=== PATIENT | male | born 1950 | race Caucasian/White ===

== ENCOUNTER 2024-02-16 04:26 | Day surgery (SDC) | payer MEDICARE | END 2024-02-16 23:00 | disposition home or self-care (01) | LOC: WOUND 04:26 | DX: I89.0 Lymphedema, not elsewhere classified (principal); E11.51 Type 2 diabetes mellitus with diabetic peripheral angiopathy without gangrene; I87.2 Venous insufficiency (chronic) (peripheral); I11.0 Hypertensive heart disease with heart failure; I50.9 Heart failure, unspecified; G47.30 Sleep apnea, unspecified; Z88.5 Allergy status to narcotic agent | CPT/HCPCS: G0463 ==

== ENCOUNTER 2024-02-23 06:29 | Day surgery (SDC) | payer MEDICARE | END 2024-02-23 23:00 | disposition home or self-care (01) | LOC: WOUND 06:29 | DX: I89.0 Lymphedema, not elsewhere classified (principal); L03.115 Cellulitis of right lower limb; L03.116 Cellulitis of left lower limb; E11.51 Type 2 diabetes mellitus with diabetic peripheral angiopathy without gangrene; I87.2 Venous insufficiency (chronic) (peripheral); I11.0 Hypertensive heart disease with heart failure; I50.9 Heart failure, unspecified | CPT/HCPCS: G0463 ==

== ENCOUNTER 2024-03-01 07:00 | Day surgery (SDC) | payer MEDICARE | END 2024-03-01 23:00 | disposition home or self-care (01) | LOC: WOUND 07:00 | DX: I89.0 Lymphedema, not elsewhere classified (principal); L03.115 Cellulitis of right lower limb; L03.116 Cellulitis of left lower limb; I11.0 Hypertensive heart disease with heart failure; I50.9 Heart failure, unspecified; E11.622 Type 2 diabetes mellitus with other skin ulcer; L97.228 Non-pressure chronic ulcer of left calf with other specified severity; E11.51 Type 2 diabetes mellitus with diabetic peripheral angiopathy without gangrene; I87.2 Venous insufficiency (chronic) (peripheral) | CPT/HCPCS: 93922; G0463 ==

== ENCOUNTER 2024-03-08 04:41 | Day surgery (SDC) | payer MEDICARE ==
[2024-03-08] MEDS ORDERED: Lidocaine HCl 4% Cream 5 GM ONE (13:31)
== END 2024-03-08 23:00 | disposition home or self-care (01) ==
LOC: WOUND 04:41
DX: L03.115 Cellulitis of right lower limb (principal); I89.0 Lymphedema, not elsewhere classified; I87.2 Venous insufficiency (chronic) (peripheral); E11.51 Type 2 diabetes mellitus with diabetic peripheral angiopathy without gangrene; I11.0 Hypertensive heart disease with heart failure; I50.9 Heart failure, unspecified
CPT/HCPCS: A6213; A9270; G0463

== ENCOUNTER 2024-03-15 06:33 | Day surgery (SDC) | payer MEDICARE ==
[2024-03-15] MEDS ORDERED: Triamcinolone Acet 0.1% Cream 15 gm ONE (15:25)
== END 2024-03-15 23:00 | disposition home or self-care (01) ==
LOC: WOUND 06:33
DX: I89.0 Lymphedema, not elsewhere classified (principal); L03.115 Cellulitis of right lower limb; E11.51 Type 2 diabetes mellitus with diabetic peripheral angiopathy without gangrene; I87.2 Venous insufficiency (chronic) (peripheral); I11.0 Hypertensive heart disease with heart failure; I50.9 Heart failure, unspecified
CPT/HCPCS: A9270; G0463

== ENCOUNTER 2024-03-22 04:51 | Day surgery (SDC) | payer MEDICARE ==
[2024-03-22] MEDS ORDERED: Triamcinolone Acet 0.1% Cream 15 gm ONE (14:36)
== END 2024-03-22 23:00 | disposition home or self-care (01) ==
LOC: WOUND 04:51
DX: I89.0 Lymphedema, not elsewhere classified (principal); E11.51 Type 2 diabetes mellitus with diabetic peripheral angiopathy without gangrene; I87.2 Venous insufficiency (chronic) (peripheral); I11.0 Hypertensive heart disease with heart failure; I50.9 Heart failure, unspecified
CPT/HCPCS: A9270; G0463

== ENCOUNTER 2024-04-26 04:30 | Day surgery (SDC) | payer MEDICARE | END 2024-04-26 23:00 | disposition home or self-care (01) | LOC: WOUND 04:30 | DX: I89.0 Lymphedema, not elsewhere classified (principal); E11.622 Type 2 diabetes mellitus with other skin ulcer; L97.221 Non-pressure chronic ulcer of left calf limited to breakdown of skin; L97.211 Non-pressure chronic ulcer of right calf limited to breakdown of skin; I87.2 Venous insufficiency (chronic) (peripheral); E11.51 Type 2 diabetes mellitus with diabetic peripheral angiopathy without gangrene | CPT/HCPCS: A6213; G0463 ==

== ENCOUNTER 2024-05-03 03:36 | Day surgery (SDC) | payer MEDICARE | END 2024-05-03 23:00 | disposition home or self-care (01) | LOC: WOUND 03:36 | DX: I89.0 Lymphedema, not elsewhere classified (principal); L98.499 Non-pressure chronic ulcer of skin of other sites with unspecified severity; L97.211 Non-pressure chronic ulcer of right calf limited to breakdown of skin; L97.221 Non-pressure chronic ulcer of left calf limited to breakdown of skin; I87.2 Venous insufficiency (chronic) (peripheral); I73.9 Peripheral vascular disease, unspecified | CPT/HCPCS: A6213; G0463 ==

== ENCOUNTER 2024-09-10 15:42 | Inpatient (IN) | payer MEDICARE ==
[~2024-09-10] VITALS: Ht 182.9 cm; Wt 160.0 kg
[2024-09-10] VITALS (15 sets, daily range): BP systolic 99–143; BP diastolic 36–66
[2024-09-10 16:11] LABS: BASOPHILS ABSOLUTE AUTO 0.08 K/mm3 (0.00-0.23); BASOPHILS PERCENT AUTO 1 % (0-2); EOSINOPHILS ABSOLUTE AUTO 0.03 K/mm3 (0.00-0.68); EOSINOPHILS PERCENT AUTO 0 % (0-6); Hematocrit 36.1 % (37.0-53.0); Hemoglobin 11.8 g/dL (13.5-17.5); IMMATURE GRAN ABSOLUTE AUTO 0.09 K/mm3 (0.00-0.10); IMMATURE GRAN PERCENT AUTO 1 % (0-1); LYMPHOCYTES ABSOLUTE AUTO 0.94 K/mm3 (0.84-5.20); LYMPHOCYTES PERCENT AUTO 8 % (21-46); MONOCYTES ABSOLUTE AUTO 1.15 K/mm3 (0.16-1.47); MONOCYTES PERCENT AUTO 9 % (4-13); Mean Corpuscular HGB Conc 32.7 g/dL (31.5-36.5); Mean Corpuscular Volume 96 fL (80-100); NEUTROPHILS ABSOLUTE AUTO 10.03 K/mm3 (1.96-9.15); NEUTROPHILS PERCENT AUTO 82 % (41-73); NRBC ABSOLUTE 0.00 K/mm3 (0.00-0.02); NRBC Auto 0.0 /100 WBC (0.0-0.2); Platelet Count 120 K/mm3 (150-400); RDW Coefficient Variation 16.0 % (11.7-14.2); RDW Standard Deviation 56.8 fL (35.1-46.3)
[2024-09-10] MEDS ORDERED: CefTRIAXone Sodium 2,000 MG in NS 100 ML IV ONE (16:15)
[2024-09-10 16:19] LABS: Source, Urine Clean Catch
[2024-09-10 16:24] LABS: Bilirubin, Urine Neg (Neg); Color, Urine Brown (P-Yellow); Glucose Qualitative, Urine Neg (Neg); Ketones, Urine 1+ (Neg); Leukocyte Esterase, Urine 3+ (Neg); Protein, Urine 3+ (Neg); Specific Gravity, Urine 1.015 (1.003-1.022); Urobilinogen, Urine NORM (Normal)
[2024-09-10 16:35] LABS: Red Blood Cells, Urine TNTC /hpf (0-2); White Blood Cells, Urine TNTC /hpf (0-5)
[2024-09-10 16:43] LABS: Alanine Aminotransfer (ALT/SGP 23.0 U/L (12-78); Albumin, Blood 2.5 g/dL (3.4-5.0); Albumin/Globulin Ratio 0.5 (0.8-1.8); Anion Gap 12.0 mmol/L (3-11); Aspartate Aminotrans (AST/SGOT 55.0 U/L (12-37); Bilirubin, Total 1.2 mg/dL (0.1-1.0); Blood Urea Nitrogen 29.0 mg/dL (8-24); CO2, Blood 19.0 mmol/L (21-32); Calcium, Blood 8.4 mg/dL (8.5-10.1); Chloride, Blood 106.0 mmol/L (98-108); Creatinine, Blood 1.38 mg/dL (0.60-1.20); Globulin, Blood 4.8 g/dL (2.2-4.0); Glucose, Blood 133.0 mg/dL (70-99); Potassium, Blood 4.1 mmol/L (3.5-5.5); Sodium, Blood 133.0 mmol/L (136-145); Total Protein, Blood 7.3 g/dL (6.4-8.2)
[2024-09-10 16:51] LABS: Prothrombin Time Results 12.5 Sec (9.7-11.5)
[2024-09-10 18:12] LABS: pH Blood Venous 7.39 (7.34-7.37)
[2024-09-10] MEDS ORDERED: Piperacillin/Tazobactam Sod 4.5 GM in NS 100 ML IV SCH (18:30)
[2024-09-10] MEDS ORDERED: NS 1,000 ML IV ONE (20:29)
[2024-09-10] MEDS ORDERED: NS 1,000 ML BAG IR ONE (20:35)
[2024-09-10] MEDS ORDERED: Heparin Sodium,Porcine 5,000 UNIT/0.5 ML SDV SC SCH (21:00)
[2024-09-10] MEDS ORDERED: Lactobacil 2-S.Thermo-Bifido 1 1 Cap PO SCH (21:00)
--- NOTE | 2024-09-10 22:00 | NUR ---
ARRIVAL TO ICU: PT ARRIVED TO ICU FROM ER VIA [facility] @21:22. PT WAS TRANSFERRED FROM [facility] TO HOSPITAL BED VIA SHEET DRAW. PT ALERT AND ORIENTED AND FOLLOWING COMMANDS. PT STATES 5/10 GENERALIZED PAIN BUT NO CHEST PAIN. PT WILL BECOME SOB UPON EXERTION. PT HAS AUDIBLE EXPIRATORY WHEEZES IN UPPER AIRWAY BUT LUNG SOUNDS ARE CLEAR AND EQUAL BILATERALLY. PT IS ON O2 VIA NC @ 2LPM, SPO2 >95%. A-FIB RYTHM WITH SBP: 100-110'S MAP >65 HR: 60-80'S. IV: POWERGLIDE IN RUE AND PERIPHERAL IN LAC. RAMIREZ CATHETER IN PLACE AND DRAINING TO GRAVITY. SKIN: EDEMA AND CELLULTIS IN BLE, REDDNESS NOTED ON L LEG THAT TRAVELS FROM UPPER THIGH TO FOOT, SCATTERED BRUISING AND SCABS NOTED ALL OVER BODY, PICTURES HAVE BEEN TAKEN AND PLACED IN CHART. PT IS ABLE TO USE BEDPAN. LINES AND CORDS PLACED OUT OF REACH. CALL LIGHT PLACED WITHIN REACH AND PT WILL PRESS CALL BUTTON WHEN THEY NEED ASSISTANCE.
[2024-09-11] VITALS (38 sets, daily range): BP systolic 92–156; BP diastolic 37–97
[2024-09-11 03:20] LABS: C DIFFICILE DNA NEGATIVE (Negative)
--- NOTE | 2024-09-11 07:06 | NUR ---
SHIFT SUMMARY: PT IS DOIG WELL AND RESTING IN BED. PT ALERT AND FOLLOWING COMMANDS. PT STATES HAVING AN UPSET STOMACH AND THINKS IT IS DUE TO NOT EATING FOR OVER A DAY AND WILL WAIT TO SEE IF EATING BREAKFAST WILL HELP. PT WILL BECOME SOB UPON EXERTION. O2 @ 2LPM VIA NC, SPO2 >95%. A-FIB RYTHM AND BP HAS BEEN STABLE THROUGHOUT THE SHIFT. IV: POWERGLIDE IN LUE AND PERIPHERAL IV IN RAC. PT HAS HAS MULTIPLE BM'S DURING THE NIGHT THAT WENT FROM SEMI-SOLID TO LIQUID, RECTAL TUBE WAS PLACED AND IS DRAINING TO GRAVITY. RAMIREZ CATHETER IS IN PLACE WELL AND DRAINING TO GRAVITY. LINES, CORDS, AND TUBE PLACED OUT OF REACH. CALL LIGHT PLACED WITHIN REACH.
[2024-09-11 07:48] LABS: BASOPHILS ABSOLUTE AUTO 0.08 K/mm3 (0.00-0.23); BASOPHILS PERCENT AUTO 1 % (0-2); EOSINOPHILS ABSOLUTE AUTO 0.01 K/mm3 (0.00-0.68); EOSINOPHILS PERCENT AUTO 0 % (0-6); Hematocrit 33.1 % (37.0-53.0); Hemoglobin 11.0 g/dL (13.5-17.5); IMMATURE GRAN ABSOLUTE AUTO 0.11 K/mm3 (0.00-0.10); IMMATURE GRAN PERCENT AUTO 1 % (0-1); LYMPHOCYTES ABSOLUTE AUTO 1.84 K/mm3 (0.84-5.20); LYMPHOCYTES PERCENT AUTO 11 % (21-46); MONOCYTES ABSOLUTE AUTO 2.40 K/mm3 (0.16-1.47); MONOCYTES PERCENT AUTO 14 % (4-13); Mean Corpuscular HGB Conc 33.2 g/dL (31.5-36.5); Mean Corpuscular Volume 93 fL (80-100); NEUTROPHILS ABSOLUTE AUTO 12.60 K/mm3 (1.96-9.15); NEUTROPHILS PERCENT AUTO 74 % (41-73); NRBC ABSOLUTE 0.00 K/mm3 (0.00-0.02); NRBC Auto 0.0 /100 WBC (0.0-0.2); Platelet Count 117 K/mm3 (150-400); RDW Coefficient Variation 16.1 % (11.7-14.2); RDW Standard Deviation 55.8 fL (35.1-46.3)
[2024-09-11 08:06] LABS: Alanine Aminotransfer (ALT/SGP 25.0 U/L (12-78); Albumin, Blood 2.2 g/dL (3.4-5.0); Albumin/Globulin Ratio 0.5 (0.8-1.8); Anion Gap 10.0 mmol/L (3-11); Aspartate Aminotrans (AST/SGOT 70.0 U/L (12-37); Bilirubin, Total 0.9 mg/dL (0.1-1.0); Blood Urea Nitrogen 29.0 mg/dL (8-24); CO2, Blood 23.0 mmol/L (21-32); Calcium, Blood 7.9 mg/dL (8.5-10.1); Chloride, Blood 108.0 mmol/L (98-108); Creatinine, Blood 1.42 mg/dL (0.60-1.20); Globulin, Blood 4.5 g/dL (2.2-4.0); Glucose, Blood 127.0 mg/dL (70-99); Magnesium, Blood 2.0 mg/dL (1.6-2.4); Potassium, Blood 3.9 mmol/L (3.5-5.5); Sodium, Blood 137.0 mmol/L (136-145); Total Protein, Blood 6.7 g/dL (6.4-8.2)
[2024-09-11 15:55] LABS: Influenza A, PCR NEGATIVE (NEGATIVE); Influenza B, PCR NEGATIVE (NEGATIVE); Resp Syncytial Virus, PCR NEGATIVE (NEGATIVE); SARS-Cov-2 (COVID-19) PCR, MMC NEGATIVE (NEGATIVE)
[2024-09-11] MEDS ORDERED: TRAZ50 PO (16:45)
[2024-09-11] MEDS ORDERED: PIOG30 PO (16:48)
[2024-09-11] MEDS ORDERED: AMARYL1 M1 PO (16:48)
[2024-09-11] MEDS ORDERED: PRAV20 PO (16:48)
[2024-09-11] MEDS ORDERED: MELO7.5 PO (16:49)
[2024-09-11] MEDS ORDERED: ZESTRIL40 M1 PO (16:50)
[2024-09-11] MEDS ORDERED: METO25ER PO (16:51)
[2024-09-11] MEDS ORDERED: HYDCHL25 PO (16:52)
[2024-09-11] MEDS ORDERED: BENADRYL25 MG PO (16:54)
[2024-09-11] MEDS ORDERED: Aspir 8181 MG PO (16:55)
[2024-09-11] MEDS ORDERED: ASCO500 PO (16:55)
[2024-09-11] MEDS ORDERED: VITAMIN D5000 UNIT PO (16:56)
[2024-09-11] MEDS ORDERED: MAGNESIUM OXID500 MG PO (16:56)
[2024-09-11] MEDS ORDERED: Vitamin B Comple1 EA PO (16:56)
[2024-09-11] MEDS ORDERED: TOCO1000 PO (16:57)
[2024-09-11] MEDS ORDERED: Piperacillin/Tazobactam Sod 4.5 GM in NS 100 ML IV SCH (17:00)
[2024-09-11] MEDS ORDERED: CefTRIAXone Sodium 1,000 MG in NS 100 ML IV SCH (18:00)
--- NOTE | 2024-09-11 18:11 | NUR ---
SHIFT SUMMARY PT AWAKE AND ALERT AT TIME OF BEDSIDE REPORT. PT COMPLAINS OF PAIN IN BILATERAL LE'S AND SLIGHT HEADACHE. MEDICATED PER MAR PT ABLE TO TURN SELF AND MOVES ALL EXTREMITIES SPONTANEOUSLY. NSR T/O SHIFT W/ OCCASIONAL PVC'S. CAP REFILL <3 SECS, EDEMA NOTED IN BLE AND BUE. BREATHS SOUNDS CLEAR/DIM, SATURATING >95% ON RA. ABD SOFT AND NONTENDER, BOWEL SOUNDS ACTIVE. RECTAL TUBE IN PLACE AND DRAINING TO GRAVITY. RAMIREZ CATHETER IN PLACE AND DRAINING TO GRAVITY. SKIN HAS SCATTERED ECCHYMOSIS AND REDNESS/BREAKDOWN/SCABS TO BLE. PT COMFORTABLE IN ROOM AND ABLE TO UTILIZE CALL LIGHT APPROPRIATELY. ACCESS: RAC PIV, LUE DOUBLE LUMEN POWERGLIDE
--- NOTE | 2024-09-11 20:01 | NUR ---
TRANSFER: PT TRANSFERRED FROM ICU TO PCU AT (1945). PT IS DOING WELL, ALERT AND AND FOLLOWING ALL COMMANDS. ALL PATIENT BELONGINGS AND MEDICATIONS WAS TRANSFERRED WITH THE PT TO PCU. REPORT WAS GIVEN TO BILLET HEADER. PT WAS TRANSPORTED VIA HOSPITAL BED AND THEN TRANSFERRED TO PCU VIA SLIDE SHEET. PT'S SIGNFICANT OTHER WAS CALLED AND INFORMED THAT THE PT HAS BEEN TRANSFERRED TO PCU.
[2024-09-12] MEDS ORDERED: Heparin Sodium,Porcine 5,000 UNIT/0.5 ML SDV SC SCH
[2024-09-12 03:25] VITALS: BP 140/63
[2024-09-12 04:25] LABS: BASOPHILS ABSOLUTE AUTO 0.06 K/mm3 (0.00-0.23); BASOPHILS PERCENT AUTO 1 % (0-2); EOSINOPHILS ABSOLUTE AUTO 0.30 K/mm3 (0.00-0.68); EOSINOPHILS PERCENT AUTO 3 % (0-6); Hematocrit 30.6 % (37.0-53.0); Hemoglobin 10.2 g/dL (13.5-17.5); IMMATURE GRAN ABSOLUTE AUTO 0.04 K/mm3 (0.00-0.10); IMMATURE GRAN PERCENT AUTO 0 % (0-1); LYMPHOCYTES ABSOLUTE AUTO 1.66 K/mm3 (0.84-5.20); LYMPHOCYTES PERCENT AUTO 15 % (21-46); MONOCYTES ABSOLUTE AUTO 1.41 K/mm3 (0.16-1.47); MONOCYTES PERCENT AUTO 13 % (4-13); Mean Corpuscular HGB Conc 33.3 g/dL (31.5-36.5); Mean Corpuscular Volume 93 fL (80-100); NEUTROPHILS ABSOLUTE AUTO 7.69 K/mm3 (1.96-9.15); NEUTROPHILS PERCENT AUTO 69 % (41-73); NRBC ABSOLUTE 0.00 K/mm3 (0.00-0.02); NRBC Auto 0.0 /100 WBC (0.0-0.2); Platelet Count 108 K/mm3 (150-400); RDW Coefficient Variation 16.1 % (11.7-14.2); RDW Standard Deviation 54.4 fL (35.1-46.3)
--- NOTE | 2024-09-12 04:36 | NUR ---
SHIFT SUMMARY PT ARRIVED FROM ICU AT THE BEGINNING OF THIS NOC SHIFT. PT A&O X4. ABLE TO MAKE NEEDS KNOWN. ABLE TO REPOSITION SELF IN BED. BP STABLE. SR ON MONITOR. ON RA WITH SPO2 >92%. AFEBRILE. RECTAL TUBE IN PLACE DRAINING DARK GREEN BM. RAMIREZ CATHETER DRAINING TO GRAVITY WITH DARK COLORED URINE. THIS RN SPOKE TO [facility] RESIDENT REGARDING PT HAVE "ITCHY" LEGS WHERE CELLULITIS IS. MD WITH ORDER FOR BENADRYL. PT REPORTED THAT IT HELPED. MEDICATED PER EMAR FOR PAIN. BED IN LOWEST POSITION AND CALL LIGHT WITHIN REACH. THIS RN WILL REPORT TO ONCOMING DAYSHIFT RN.
[2024-09-12 04:44] LABS: Anion Gap 8.0 mmol/L (3-11); Blood Urea Nitrogen 25.0 mg/dL (8-24); CO2, Blood 25.0 mmol/L (21-32); Calcium, Blood 7.5 mg/dL (8.5-10.1); Chloride, Blood 109.0 mmol/L (98-108); Creatinine, Blood 1.23 mg/dL (0.60-1.20); Glucose, Blood 90.0 mg/dL (70-99); Potassium, Blood 3.7 mmol/L (3.5-5.5); Sodium, Blood 138.0 mmol/L (136-145)
[2024-09-12] MEDS ORDERED: Miconazole Nitrate 2% 85 GM PWD TOP PRN (05:35)
[2024-09-12 08:01] VITALS: BP 140/68
[2024-09-12] MEDS ORDERED: Miconazole Nitrate 2% 85 GM PWD TOP SCH (09:00)
[2024-09-12] MEDS ORDERED: DEXTROMETHORPHAN/BENZOCAINE 1 EACH LOZENGE MT PRN (10:35)
[2024-09-12 11:46] VITALS: BP 147/54
[2024-09-12 16:28] VITALS: BP 129/74
[2024-09-12 16:48] LABS: Campylobacter Sp Not Detected (NOT DETECT); E. Coli O157 Not Detected (NOT DETECT); Enteroaggregative E. coli-EAEC Not Detected (NOT DETECT); Enteropathogenic E. coli-EPEC Not Detected (NOT DETECT); Enterotoxigenic E. coli-ETEC Not Detected (NOT DETECT); Salmonella Sp Not Detected (NOT DETECT); Shiga Toxin-prod E. coli-STEC Not Detected (NOT DETECT); Shigella/Enteroin E. coli-EIEC Not Detected (NOT DETECT); Vibrio Sp Not Detected (NOT DETECT)
--- NOTE | 2024-09-12 17:27 | NUR ---
END OF SHIFT SUMMARY THE PT IS A&OX4, CALLS APPROPRAITELY, 1-2P ASSIST W/ FWW AND GB. HIS RAMIREZ WAS D/C'D THIS AFTERNOON AND A MALE PURWICK WAS SET UP TO SUCTION. URINE WITH SOME HEMATURIA. DR. TAYLOR MADE AWARE. THE PT HAS VOIDED SINCE PULLING THE RAMIREZ. HE CONTINUES TO HAVE A RECTAL TUBE D/T LIQUID STOOL. THIS RN ASKED DR. TAYLOR IF THE PT CAN HAVE SOMETHING TO HELP WITH LOOSE STOOLS, AND DR. TAYLOR WANTED TO DO A FULL PCR GI PANEL BEFORE ORDERING SOMETHING FOR LOOSE STOOLS. GI PANEL PENDING. ON TELE THE PT WAS SR/SA. IT HAS SINCE BEEN D/C'D AND THE PT IS MEDICAL STATUS WITHOUT TELE. HE HAS BEEN ON RA T/O THE DAY AND SP02 >93%. THE PT DOES HAVE AUDIABLE WHEEZING; UPPER AIRWAY. HACKING COUGH NOTED, PT IS RECIEVING TESSLON PEARLS AND WAS STARTED ON CEPECALS THIS SHIFT. NO ACUTE EVENTS THIS SHIFT.
[2024-09-12 18:52] LABS: Anion Gap 11.0 mmol/L (3-11); Blood Urea Nitrogen 26.0 mg/dL (8-24); CO2, Blood 24.0 mmol/L (21-32); Calcium, Blood 8.3 mg/dL (8.5-10.1); Chloride, Blood 106.0 mmol/L (98-108); Creatinine, Blood 1.45 mg/dL (0.60-1.20); Glucose, Blood 121.0 mg/dL (70-99); Potassium, Blood 3.9 mmol/L (3.5-5.5); Sodium, Blood 137.0 mmol/L (136-145)
[2024-09-12 20:34] VITALS: BP 114/47
[2024-09-13 03:34] VITALS: BP 122/64
[2024-09-13 04:21] LABS: BASOPHILS ABSOLUTE AUTO 0.06 K/mm3 (0.00-0.23); BASOPHILS PERCENT AUTO 1 % (0-2); EOSINOPHILS ABSOLUTE AUTO 0.62 K/mm3 (0.00-0.68); EOSINOPHILS PERCENT AUTO 7 % (0-6); Hematocrit 30.3 % (37.0-53.0); Hemoglobin 10.1 g/dL (13.5-17.5); IMMATURE GRAN ABSOLUTE AUTO 0.04 K/mm3 (0.00-0.10); IMMATURE GRAN PERCENT AUTO 0 % (0-1); LYMPHOCYTES ABSOLUTE AUTO 2.13 K/mm3 (0.84-5.20); LYMPHOCYTES PERCENT AUTO 24 % (21-46); MONOCYTES ABSOLUTE AUTO 1.19 K/mm3 (0.16-1.47); MONOCYTES PERCENT AUTO 13 % (4-13); Mean Corpuscular HGB Conc 33.3 g/dL (31.5-36.5); Mean Corpuscular Volume 91 fL (80-100); NEUTROPHILS ABSOLUTE AUTO 4.99 K/mm3 (1.96-9.15); NEUTROPHILS PERCENT AUTO 55 % (41-73); NRBC ABSOLUTE 0.00 K/mm3 (0.00-0.02); NRBC Auto 0.0 /100 WBC (0.0-0.2); Platelet Count 134 K/mm3 (150-400); RDW Coefficient Variation 15.9 % (11.7-14.2); RDW Standard Deviation 53.0 fL (35.1-46.3)
[2024-09-13 04:44] LABS: Anion Gap 9.0 mmol/L (3-11); Blood Urea Nitrogen 25.0 mg/dL (8-24); CO2, Blood 24.0 mmol/L (21-32); Calcium, Blood 8.0 mg/dL (8.5-10.1); Chloride, Blood 109.0 mmol/L (98-108); Creatinine, Blood 1.32 mg/dL (0.60-1.20); Glucose, Blood 85.0 mg/dL (70-99); Potassium, Blood 3.5 mmol/L (3.5-5.5); Sodium, Blood 138.0 mmol/L (136-145)
--- NOTE | 2024-09-13 04:50 | NUR ---
SHIFT SUMMARY PATIENT ALERT AND ORIENTED X4. HAD NO COMPLAINTS OF PAIN. MEDICATED PER EMAR FOR LOOSE STOOLS AND COUGH. ON ROOM AIR WITH SPO2 >90%. RECTAL TUBE IN PLACE. NO ACUTE ISSUES NOTED OVERNIGHT. WILL CONTINUE TO MONITOR. CALL LIGHT WITHIN REACH. REPORT GIVEN TO MEDICAL FLOOR FOR TRANSFER.
[2024-09-13 05:41] VITALS: BP 140/64
[2024-09-13 07:28] VITALS: BP 118/68
--- NOTE | 2024-09-13 13:03 | NUR ---
ASSUMED CARE. A/O X 4 PLEASENT AND COOPERATIVE WITH CARE. PURWIC IN PLACE DRAINING CLR YELLOW AND RECTAL TUBE IN PLACE DRAINING GREEN SOFT TO LIQ STOOL. NO C/O PAIN NO DISTRESS. ASSISTED UP TO CHAIR WITH MINIMAL ASSIST USING FWW..
[2024-09-13 15:40] VITALS: BP 128/78
--- NOTE | 2024-09-13 18:12 | NUR ---
PT DOING WELL AND STATES HE FEELS BETTER . HAS WORKED WITH MULTIPLE THERAPIST TODAY AND DONE WELL. LOOSE STOOL CONTINUES TO DRAIN VIA RECTAL TUBE AND PURWIC WAS REMOVED, PT USE URINAL. CALL LIGHT WITHING REACH MAKES NEEDS KNOWN
[2024-09-13] MEDS ORDERED: NS 250 ML IV PRN (19:45)
[2024-09-13 19:52] VITALS: BP 124/58
[2024-09-14 03:27] VITALS: BP 106/51
--- NOTE | 2024-09-14 03:27 | NUR ---
SHIFT SUMMARY NO ACUTE EVENTS DURING THIS SHIFT. PT HAS URGENCY TO VOID, CONTINENT/ INCONTINENT. ASSISTED TO STAND UP BY THE BEDSIDE TO USE THE URINAL. PT VOIDED SMALL AMOUNTS MULTIPLE TIMES T/O THIS SHIFT. RECTAL TUBE REMOVED BY THE PT WHEN ACCIDENTALLY PULLED IT OUT. PT CONTINUES TO HAVE LIQUID/SOFT STOOL, GREEN/BROWN IN COLOR. INCONTINENT/UNABLE TO CONTROL BM'S. ATTENDS IN PLACE. MEDICATED WITH IMMODIUM Q4 PRN. PT DENIES PAIN AND DISCOMFORT. STRICT I&O'S. BLE +3 EDEMA, ENCOURAGED ELEVATING LE'S. NOTED THAT LEFT UE COMPLITELY REDDISH IN COLOR. WARM TO THE TOUCH. OCCASIONAL PRODUCTIVE COUGH NOTED. PRN TESSALON PERLS ADMINISTERED AT HS PER PT REQUEST. LUNG SOUNDS DIMINISHED T/O PER AUSCULTATION. PT RESTING FEW HRS DURING THIS SHIFT. BED AT THE LOWEST POSITION, CALL LIGHT W/I REACH. PT IS A/O X4, TALKATIVE, PLEASANT AND COOPERATIVE WITH CARE. PT IS ABLE TO MAKE HIS NEEDS KNOWN.
[2024-09-14 05:46] LABS: Anion Gap 7.0 mmol/L (3-11); Blood Urea Nitrogen 22.0 mg/dL (8-24); CO2, Blood 27.0 mmol/L (21-32); Calcium, Blood 7.8 mg/dL (8.5-10.1); Chloride, Blood 108.0 mmol/L (98-108); Creatinine, Blood 1.35 mg/dL (0.60-1.20); Glucose, Blood 87.0 mg/dL (70-99); Potassium, Blood 3.5 mmol/L (3.5-5.5); Sodium, Blood 138.0 mmol/L (136-145)
[2024-09-14 07:35] VITALS: BP 133/65
[2024-09-14] MEDS ORDERED: CeFAZolin Sodium 2,000 MG in NS 100 ML IV SCH ×2 (08:20→12:00)
[2024-09-14] MEDS ORDERED: CefTRIAXone Sodium 1,000 MG in NS 100 ML IV SCH (09:00)
[2024-09-14] MEDS ORDERED: Banana Flakes/Tos 1 EA Powder Pack PO SCH (09:00)
--- NOTE | 2024-09-14 11:37 | NUR ---
ASSUMED CARE OF PT. A/O X 4 DOING VERY WELL TODAY RECTAL TUBE OUT AND PT AMB TO BATHROOM IND WITH FWW. NO C/O PAIN. CALL LIGHT WITHIN REACH. NEW IV TO LEFT WRIST STARTED, NEW ANTIBIOTIC FOR INCREASING REDNESS TO LEFT LEG, PT HAS HAD NOT COMPLAINTS.
[2024-09-14 14:55] VITALS: BP 119/58
[2024-09-14 19:53] VITALS: BP 131/60
--- NOTE | 2024-09-15 03:02 | NUR ---
SHIFT SUMMARY NO ACUTE EVENTS DURING THIS SHIFT. IV ABX INFUSED ORDERED. PT DENIES PAIN. LEFT LE REMAINS REDDENED, +3 BLE EDEMA. PT AMBULATING TO THE RESTROOM INDEPENDENTLY USING FWW. BED AT THE LOWEST POSITION, CALL LIGHT W/I REACH. PT IS A/O X4, ABLE TO MAKE HIS NEEDS KNOWN AND COOPERATIVE WITH CARE.
[2024-09-15 04:45] VITALS: BP 128/66
[2024-09-15 05:14] LABS: Anion Gap 11.0 mmol/L (3-11); Blood Urea Nitrogen 18.0 mg/dL (8-24); CO2, Blood 23.0 mmol/L (21-32); Calcium, Blood 8.0 mg/dL (8.5-10.1); Chloride, Blood 105.0 mmol/L (98-108); Creatinine, Blood 1.06 mg/dL (0.60-1.20); Glucose, Blood 195.0 mg/dL (70-99); Potassium, Blood 4.1 mmol/L (3.5-5.5); Sodium, Blood 135.0 mmol/L (136-145)
[2024-09-15 07:10] VITALS: BP 136/59
--- NOTE | 2024-09-15 12:48 | NUR ---
ASSUMED CARE PT DOING BETTER TODAY WAS ASSISTED TO BATHROOM, PT HAD SHOWER, JAM WELL. LEFT LEG CELLULITS LOOKING BETTER AND IS NOW BELOW THE OUTLINES.. CALL LIGHT WITHIN REACH MAKES NEEDS KNOWN
[2024-09-15 16:57] VITALS: BP 135/66
--- NOTE | 2024-09-15 17:48 | NUR ---
NO CHANGE PT DOING WELL, NEW IV STARTED TO RIGHT FOREARM.
[2024-09-15 19:27] VITALS: BP 143/66
--- NOTE | 2024-09-16 04:09 | NUR ---
SHIFT SUMMARY NO ACUTE EVENTS DURING THIS SHIFT. PT DENIES PAIN AND DISCOMFORT. HS SNACK PROVIDED. RIGHT LEG IMPROVING, LESS REDDENED T/O. PT UP IN THE CHAIR AT HS. PT RESTED WELL DURING NIGHT HRS. LUNGS DIM T/O, NO COUGH NOTED. BED AT THE LOWEST POSITION, CALL LIGHT W/I REACH. PT IS A/OX4, PLEASANT AND COOPERATIVE WITH CARE. PT IS ABLE TO MAKE HIS NEEDS KNOWN.
[2024-09-16 07:13] VITALS: BP 147/74
--- NOTE | 2024-09-16 13:11 | NUR ---
ASSUMED CARE PT IN GOOD SPIRITS AND IS HOPING TO GO HOME TODAY. IV WENT BAD AND DID NOT WANT IT REPLACED UNTIL HE SAW . DR VINES AT BEDSIDE AND GAVE DC ORDERS, IV MEDS TURNED TO PO. CASE MANAGEMNET AND PHYSICAL THERAPY IN TO SEE PT FOR DISCHARGE SET UP. PT IS QUIETLY WAITING IN RECLYNER FOR DISCHARGE.
[2024-09-16] MEDS ORDERED: CEPACOL THROAT1 EAC1 MM (13:13)
[2024-09-16] MEDS ORDERED: BANATROL PLUS1 EAC1 PO (13:13)
[2024-09-16] MEDS ORDERED: JARDIANCE10 MG PO (13:14)
[2024-09-16] MEDS ORDERED: FURO40 PO (13:15)
[2024-09-16] MEDS ORDERED: GUAI600T33 PO (13:16)
[2024-09-16] MEDS ORDERED: LOPE2C PO (13:16)
[2024-09-16] MEDS ORDERED: MICONAZOLE NITR85 GM TOP (13:17)
[2024-09-16] MEDS ORDERED: PRED20 PO (13:31)
[2024-09-16] MEDS ORDERED: SPIR25 PO (13:32)
[2024-09-16] MEDS ORDERED: VISBIOME 112.51 EACH PO (13:41)
[2024-09-16] MEDS ORDERED: ALBU90OI INH (13:42)
[2024-09-16] MEDS ORDERED: AMOCLA875 PO (13:42)
--- NOTE | 2024-09-16 17:24 | NUR ---
DISCHARGE INSTRUCTIONS GIVEN AND IMPLEMENTED. INSTRUCTIONS GONE OVER WITH GRAND DAUGHTER WHO WILL BE HELPING WHEN NEEDED. ALL QUESTIONS ANSWERED
== END 2024-09-16 15:38 | disposition home health service (06) | DRG 871 ==
LOC: ER 15:42 → PCU 18:10 → ICUE 18:10 → MEDS 18:10 → ICUE 21:20 → MEDS 21:31 → ICUE 09-11 11:21 → PCU 09-11 19:59 → MEDS 09-13 05:22
PROVIDERS: Internal Medicine; Nurse Practitioner Acute Care; Student in an Organized Health Care Education/Training Program; ADMIT Student in an Organized Health Care Education/Training Program
PROC: 0T9B70Z Drainage of Bladder with Drainage Device, Via Natural or Artificial Opening (ICD-10-PCS; principal; 2024-09-10)
PROC: 3E033XZ Introduction of Vasopressor into Peripheral Vein, Percutaneous Approach (ICD-10-PCS; 2024-09-10)
PROC: 3E03329 Introduction of Other Anti-infective into Peripheral Vein, Percutaneous Approach (ICD-10-PCS; 2024-09-10)
DX: A40.8 Other streptococcal sepsis (principal); I50.31 Acute diastolic (congestive) heart failure; R65.21 Severe sepsis with septic shock; J96.01 Acute respiratory failure with hypoxia; J18.9 Pneumonia, unspecified organism; Z68.42 Body mass index [BMI] 45.0-49.9, adult; N39.0 Urinary tract infection, site not specified; L03.116 Cellulitis of left lower limb; N17.9 Acute kidney failure, unspecified; I13.0 Hypertensive heart and chronic kidney disease with heart failure and stage 1 through stage 4 chronic kidney disease, or unspecified chronic kidney disease; E87.21 Acute metabolic acidosis; I47.10 Supraventricular tachycardia, unspecified; E66.01 Morbid (severe) obesity due to excess calories; G47.33 Obstructive sleep apnea (adult) (pediatric); I87.2 Venous insufficiency (chronic) (peripheral); E11.65 Type 2 diabetes mellitus with hyperglycemia; I49.3 Ventricular premature depolarization; I27.20 Pulmonary hypertension, unspecified; N18.31 Chronic kidney disease, stage 3a; Z99.81 Dependence on supplemental oxygen
CPT/HCPCS: 36415; 51702; 71045; 73701; 76770; 80048; 80053; 81001; 82550; 82803; 83605; 83735; 83880; 84145; 85025; 85610; 85730; 86140; 87040; 87086; 87147; 87449; 87493; 87507; 87637; 93005; 93010; 93306; 96365-59; 97110; 97116; 97162; 97165; 97530; 97535; 99285-25; A9270; J0456; J0690; J0696; J1644; J1938; J2470; J2543; J2919; J7030; J7050; J7120; J7512; Q9967

== ENCOUNTER 2024-10-29 19:38 | Inpatient (IN) | payer MEDICARE ==
[~2024-10-29] VITALS: Ht 182.9 cm; Wt 152.2 kg
[~2024-10-29 19:38] MED LIST: ALBU90OI INH; AMARYL1 M1 PO; AMOCLA875 PO; ASCO500 PO; Aspir 8181 MG PO; BANATROL PLUS1 EAC1 PO; BENADRYL25 MG PO; CEPACOL THROAT1 EAC1 MM; FURO40 PO; GUAI600T33 PO; HYDCHL25 PO; JARDIANCE10 MG PO; LOPE2C PO; MAGNESIUM OXID500 MG PO; MELO7.5 PO; METO25ER PO; MICONAZOLE NITR85 GM TOP; PIOG30 PO; PRAV20 PO; PRED20 PO; SPIR25 PO; TOCO1000 PO; TRAZ50 PO; VISBIOME 112.51 EACH PO; VITAMIN D5000 UNIT PO; Vitamin B Comple1 EA PO; ZESTRIL40 M1 PO
[2024-10-29 21:12] LABS: BASOPHILS ABSOLUTE AUTO 0.08 K/mm3 (0.00-0.23); BASOPHILS PERCENT AUTO 1 % (0-2); EOSINOPHILS ABSOLUTE AUTO 0.14 K/mm3 (0.00-0.68); EOSINOPHILS PERCENT AUTO 1 % (0-6); Hematocrit 40.4 % (37.0-53.0); Hemoglobin 13.7 g/dL (13.5-17.5); IMMATURE GRAN ABSOLUTE AUTO 0.03 K/mm3 (0.00-0.10); IMMATURE GRAN PERCENT AUTO 0 % (0-1); LYMPHOCYTES ABSOLUTE AUTO 2.13 K/mm3 (0.84-5.20); LYMPHOCYTES PERCENT AUTO 19 % (21-46); MONOCYTES ABSOLUTE AUTO 1.48 K/mm3 (0.16-1.47); MONOCYTES PERCENT AUTO 13 % (4-13); Mean Corpuscular HGB Conc 33.9 g/dL (31.5-36.5); Mean Corpuscular Volume 91 fL (80-100); NEUTROPHILS ABSOLUTE AUTO 7.49 K/mm3 (1.96-9.15); NEUTROPHILS PERCENT AUTO 66 % (41-73); NRBC ABSOLUTE 0.00 K/mm3 (0.00-0.02); NRBC Auto 0.0 /100 WBC (0.0-0.2); RDW Coefficient Variation 15.2 % (11.7-14.2); RDW Standard Deviation 50.8 fL (35.1-46.3)
[2024-10-29 21:19] LABS: Alanine Aminotransfer (ALT/SGP 27.0 U/L (12-78); Albumin, Blood 3.3 g/dL (3.4-5.0); Albumin/Globulin Ratio 0.7 (0.8-1.8); Anion Gap 13.0 mmol/L (3-11); Aspartate Aminotrans (AST/SGOT 40.0 U/L (12-37); Bilirubin, Total 1.4 mg/dL (0.1-1.0); Blood Urea Nitrogen 32.0 mg/dL (8-24); CO2, Blood 24.0 mmol/L (21-32); Calcium, Blood 9.0 mg/dL (8.5-10.1); Chloride, Blood 103.0 mmol/L (98-108); Creatinine, Blood 1.41 mg/dL (0.60-1.20); Globulin, Blood 4.7 g/dL (2.2-4.0); Glucose, Blood 129.0 mg/dL (70-99); Magnesium, Blood 2.0 mg/dL (1.6-2.4); Phosphorus, Blood 3.1 mg/dL (2.5-4.9); Potassium, Blood 4.2 mmol/L (3.5-5.5); Sodium, Blood 136.0 mmol/L (136-145); Total Protein, Blood 8.0 g/dL (6.4-8.2)
[2024-10-29 22:02] LABS: Platelet Count 194 K/mm3 (150-400)
[2024-10-29] MEDS ORDERED: Ondansetron HCl 2 MG / ML 2ML Vial IV ONE (23:05)
[2024-10-29] MEDS ORDERED: NS 1,000 ML IV SCH (23:20)
[2024-10-29] MEDS ORDERED: FentaNYL Citrate 50 MCG/ML 2 ML Injection IV PRN (23:40)
[2024-10-29] MEDS ORDERED: FLU VACC TS2025-26(6MOS UP)/PF 45 MCG/0.5 ML SYRINGE IM ONE (23:40)
[2024-10-29] MEDS ORDERED: Ondansetron HCl 2 MG / ML 2ML Vial IV PRN (23:40)
[2024-10-29] MEDS ORDERED: NS 1,000 ML IV ONE (23:45)
[2024-10-30] VITALS (22 sets, daily range): BP systolic 122–151; BP diastolic 50–75
[2024-10-30] MEDS ORDERED: HYDROmorphone HCl/Pf 1MG SYR IV ONE (00:25)
--- NOTE | 2024-10-30 06:06 | NUR ---
SHIFT SUMMARY PT ADMITTED FOR INCARCERATED HERNIA W/ PROXIMAL SBO. A&O X4. NG TUBE PATENT AND DRAINING TO LIS. PT DENIES NAUSEA AND PAIN. PT HAS BEEN RESTING COMFORTABLY WITHOUT DISTRESS. PT HAS BEEN NPO SINCE ARRIVING TO UNIT AT 0120 WITH PLAN FOR SURGERY TODAY. CALL LIGHT WITHIN REACH.
[2024-10-30 06:35] LABS: BASOPHILS ABSOLUTE AUTO 0.07 K/mm3 (0.00-0.23); BASOPHILS PERCENT AUTO 1 % (0-2); EOSINOPHILS ABSOLUTE AUTO 0.20 K/mm3 (0.00-0.68); EOSINOPHILS PERCENT AUTO 2 % (0-6); Hematocrit 34.8 % (37.0-53.0); Hemoglobin 11.7 g/dL (13.5-17.5); IMMATURE GRAN ABSOLUTE AUTO 0.02 K/mm3 (0.00-0.10); IMMATURE GRAN PERCENT AUTO 0 % (0-1); LYMPHOCYTES ABSOLUTE AUTO 2.58 K/mm3 (0.84-5.20); LYMPHOCYTES PERCENT AUTO 26 % (21-46); MONOCYTES ABSOLUTE AUTO 1.52 K/mm3 (0.16-1.47); MONOCYTES PERCENT AUTO 15 % (4-13); Mean Corpuscular HGB Conc 33.6 g/dL (31.5-36.5); Mean Corpuscular Volume 91 fL (80-100); NEUTROPHILS ABSOLUTE AUTO 5.49 K/mm3 (1.96-9.15); NEUTROPHILS PERCENT AUTO 56 % (41-73); NRBC ABSOLUTE 0.00 K/mm3 (0.00-0.02); NRBC Auto 0.0 /100 WBC (0.0-0.2); Platelet Count 169 K/mm3 (150-400); RDW Coefficient Variation 15.3 % (11.7-14.2); RDW Standard Deviation 51.4 fL (35.1-46.3)
[2024-10-30 07:01] LABS: Alanine Aminotransfer (ALT/SGP 20.0 U/L (12-78); Albumin, Blood 2.7 g/dL (3.4-5.0); Albumin/Globulin Ratio 0.7 (0.8-1.8); Anion Gap 10.0 mmol/L (3-11); Aspartate Aminotrans (AST/SGOT 36.0 U/L (12-37); Bilirubin, Total 1.1 mg/dL (0.1-1.0); Blood Urea Nitrogen 36.0 mg/dL (8-24); CO2, Blood 27.0 mmol/L (21-32); Calcium, Blood 8.3 mg/dL (8.5-10.1); Chloride, Blood 106.0 mmol/L (98-108); Creatinine, Blood 1.39 mg/dL (0.60-1.20); Globulin, Blood 3.8 g/dL (2.2-4.0); Glucose, Blood 111.0 mg/dL (70-99); Potassium, Blood 3.8 mmol/L (3.5-5.5); Sodium, Blood 139.0 mmol/L (136-145); Total Protein, Blood 6.5 g/dL (6.4-8.2)
[2024-10-30] MEDS ORDERED: CeFAZolin Sodium 3,000 MG in NS 100 ML IV SCH (07:10)
--- NOTE | 2024-10-30 07:28 | NUR ---
pt to pre op
[2024-10-30] MEDS ORDERED: Insulin Human Lispro 100 Units/ML 3ML Syringe SC SCH (07:30)
--- NOTE | 2024-10-30 07:32 | NUR ---
History, Chart, Medications and Allergies reviewed before start of procedure.Surgical site prepped with 2% Chlorhexidine cloth wipe. Pre-Op teaching done. Pt verbalizes understanding. Lungs clear T/O to Auscultation. PATIENT RATES PAIN AT 4/10 IN HIS THROAT FROM NG TUBE HE STATES.
[2024-10-30] MEDS ORDERED: Bupivacaine 0.5% HCl 5 MG/ML 30MLVIAL ONE (08:01)
[2024-10-30] MEDS ORDERED: Rocuronium Bromide 10 MG/ML 5ML Injection IV ONE (08:15)
[2024-10-30] MEDS ORDERED: Ondansetron HCl 2 MG / ML 2ML Vial IV ONE (08:15)
[2024-10-30] MEDS ORDERED: Dexamethasone Sod Phos 10 MG/ML 1ML VIAL IV ONE (08:15)
[2024-10-30] MEDS ORDERED: FentaNYL Citrate 50 MCG/ML 2 ML Injection IV ONE ×2 (08:16→10:01)
[2024-10-30] MEDS ORDERED: SuccINYLCHOLINE Chloride 100 MG/5 ML 5MLSYR IV ONE ×2 (08:20)
--- NOTE | 2024-10-30 08:48 | NUR ---
10/30/24 0848 Gayle Smith NOTED DRESSING TO PTS RLE, NO SCD APPLIED PER DR CHRISTIE
[2024-10-30] MEDS ORDERED: FentaNYL Citrate 50 MCG/ML 2 ML Injection IV PRN ×2 (08:55)
[2024-10-30] MEDS ORDERED: Ondansetron HCl 2 MG / ML 2ML Vial IV PRN (08:55)
[2024-10-30] MEDS ORDERED: HYDROmorphone HCl/Pf 1MG SYR IV PRN ×2 (08:55→09:00)
[2024-10-30] MEDS ORDERED: Phenylephrine HCl 100 MCG/ML-NS 10MLSYR (1MG/10ML) IV ONE (08:58)
[2024-10-30] MEDS ORDERED: Labetalol HCL 5 MG/ML 4ML Injection (Single Dose) IV ONE (08:58)
[2024-10-30] MEDS ORDERED: Sugammadex Sodium 200 MG/2ML SDV (100 MG/ML) IV ONE (09:57)
[2024-10-30] MEDS ORDERED: HYDROcodone 5-APAP 325 TAB PO PRN (10:05)
[2024-10-30] MEDS ORDERED: HYDROmorphone HCl/Pf 1MG SYR ONE ×2 (10:39→11:01)
--- NOTE | 2024-10-30 11:59 | NUR ---
PT ARRIVED TO 214 FROM PACU TRANSFERRED PT FROM [facility] TO BED. VSS. LAP INCISIONS TO ABD AND NATHANAEL TO MIDLINE CDI. ABD BINDER IN PLACE FOR COMFORT. PROVIDED WATER FOR PATIENT. CALL LIGHT IN REACH. CALLED PT'S DAUGHTER, LAUREN, TO INFORM PT BACK TO ROOM AFTER SURGERY AND TO REQUEST A LIST OF PT'S HOME MEDS.
--- NOTE | 2024-10-30 16:35 | NUR ---
SUMMARY PT IS POD 0 FOR EXP LAP W/VENTRAL HERNIA REPAIR AND SM BOWEL RESECTION. PT HAS MIDLINE NATHANAEL AND TWO LAP SITES THAT ARE CDI. ABDOMINAL BINDER IN PLACE. PT TOLERATING CLEARS. DRESSING TO RLE CDI; DR VINES EXAMINED AT BEDSIDE THIS AFTERNOON. PT HAS VOIDED. MEDICATED PER ORDERS FOR ABDOMINAL PAIN. CALL LIGHT IN REACH.
[2024-10-30] MEDS ORDERED: Albuterol HFA200 ACT/6.7 GM INH INH PRN (17:15)
--- NOTE | 2024-10-30 17:15 | NUR ---
ASSUMED CARE OF PT
[2024-10-30 18:27] LABS: Magnesium, Blood 2.1 mg/dL (1.6-2.4); Phosphorus, Blood 4.2 mg/dL (2.5-4.9)
--- NOTE | 2024-10-30 19:16 | NUR ---
no acute changes t/o shift. report given.
[2024-10-30] MEDS ORDERED: Miconazole Nitrate 2% 85 GM PWD TOP SCH (21:00)
[2024-10-31 03:07] VITALS: BP 158/74
[2024-10-31 06:38] LABS: Hematocrit 32.1 % (37.0-53.0); Hemoglobin 10.9 g/dL (13.5-17.5); Mean Corpuscular HGB Conc 34.0 g/dL (31.5-36.5); Mean Corpuscular Volume 93 fL (80-100); NRBC ABSOLUTE 0.00 K/mm3 (0.00-0.02); NRBC Auto 0.0 /100 WBC (0.0-0.2); Platelet Count 165 K/mm3 (150-400); RDW Coefficient Variation 15.2 % (11.7-14.2); RDW Standard Deviation 51.6 fL (35.1-46.3)
--- NOTE | 2024-10-31 06:40 | NUR ---
SHIFT SUMMARY POD 1 SMALL BOWEL RESECTION W/ REPAIR OF INCARERATED HERNIA. PAIN CONTROLLED PER EMAR. SBA ASSIST TO BATHROOM UTILIZING FWW. NORMAL SR HR 82 PER FACE CLEANER. CALL LIGHT WITHIN REACH.
[2024-10-31 07:14] VITALS: BP 159/75
[2024-10-31 07:16] LABS: Anion Gap 9.0 mmol/L (3-11); Blood Urea Nitrogen 36.0 mg/dL (8-24); CO2, Blood 26.0 mmol/L (21-32); Calcium, Blood 7.8 mg/dL (8.5-10.1); Chloride, Blood 103.0 mmol/L (98-108); Creatinine, Blood 1.3 mg/dL (0.60-1.20); Glucose, Blood 106.0 mg/dL (70-99); Potassium, Blood 3.8 mmol/L (3.5-5.5); Sodium, Blood 134.0 mmol/L (136-145)
[2024-10-31] MEDS ORDERED: Cholecalciferol 1000 Unit Tablet (=25MCG) PO SCH (09:00)
--- NOTE | 2024-10-31 14:05 | NUR ---
TELE CALLED THIS RN TO REPORT A RUN OF JANES. MD NOTIFIED, PATIENT IS ASYMPTOMATIC NO NEW ORDERS. PT IS RESTING IN CHAIR DENIES CP/P.
[2024-10-31 15:07] VITALS: BP 145/98
[2024-10-31 15:28] VITALS: BP 147/84
--- NOTE | 2024-10-31 17:03 | NUR ---
SHIFT SUMMARY POD 1 INCARCERATED HERNIA REPAIR. PT UP TO CHAIR DURING SHIFT. REPORTED FEELING A LITTLE OFF AND WAS HELPED BACK TO BED. INHALER GIVEN BY RT AND PT REPORTS SOME IMPROVEMENT. ABLE TO SLEEP WELL. ENCOURAGED PT TO DEEP BREATH. TOLERATING DIET WELL, DENIES NAUSEA AT THIS TIME. REPORTS SOME FLATUS. DRESSINGS REMAIN CDI.
[2024-10-31 19:16] VITALS: BP 150/65
[2024-10-31 21:07] VITALS: BP 137/67
[2024-11-01 00:02] VITALS: BP 125/51
[2024-11-01 02:20] VITALS: BP 145/68
--- NOTE | 2024-11-01 05:05 | NUR ---
LICENSED FUNERAL DIRECTOR AND EMBALMER SUMMARY PT IS POD 1 FOR HERNIA REPAIR AND SMALL BOWEL RESECTION. NATHANAEL DRESSING TO MIDLINE C/D/I WITH NO SHADOWING TO DRESSING NOTED. PT WITH A FEVER OF 103 AT START OF SHIFT. NOTIFIED SENIOR DESIGN ENGINEERING SPECIALIST HOSPITALIST AND RECEIVED ORDER FOR TYLENOL AND TO HAVE BLOOD CULTURES DRAWN. AFTER TYLENOL PT'S TEMP SLOWLY IMPROVED AND IS NOW AFEBRILE. PT HAS BEEN UP TO THE BATHROOM SEVERAL TIMES TO URINATE AND HAD A BM, DOES WELL AMBULATING WITH FWW. PT WITH SIGNIFICANT BLE EDEMA, RESTARTED ON HIS NORMAL DOSE OF LASIX AT BEDTIME AFTER GETTING ORDER FROM HOSPITALIST. ON 2L OV VIA NC, SATTING MID TO HIGH 90'S. OTHER VSS, WCTM.
[2024-11-01 05:31] LABS: Hematocrit 34.3 % (37.0-53.0); Hemoglobin 11.5 g/dL (13.5-17.5); Mean Corpuscular HGB Conc 33.5 g/dL (31.5-36.5); Mean Corpuscular Volume 93 fL (80-100); NRBC ABSOLUTE 0.00 K/mm3 (0.00-0.02); NRBC Auto 0.0 /100 WBC (0.0-0.2); Platelet Count 150 K/mm3 (150-400); RDW Coefficient Variation 15.4 % (11.7-14.2); RDW Standard Deviation 52.4 fL (35.1-46.3)
[2024-11-01 05:48] LABS: Anion Gap 9.0 mmol/L (3-11); Blood Urea Nitrogen 39.0 mg/dL (8-24); CO2, Blood 28.0 mmol/L (21-32); Calcium, Blood 7.4 mg/dL (8.5-10.1); Chloride, Blood 100.0 mmol/L (98-108); Creatinine, Blood 1.32 mg/dL (0.60-1.20); Glucose, Blood 133.0 mg/dL (70-99); Potassium, Blood 3.8 mmol/L (3.5-5.5); Sodium, Blood 133.0 mmol/L (136-145)
[2024-11-01] MEDS ORDERED: Enoxaparin 40 MG/0.4 ML SYR SC SCH (08:00)
[2024-11-01] MEDS ORDERED: Mag Hydrox/Al Hydrox/Simeth 18 ML,Lidocaine 2% Viscous Soln 9 ML,Atropine/Scopalam/Hyos... PO ONE (10:35)
[2024-11-01 11:27] VITALS: BP 146/73
[2024-11-01 15:47] VITALS: BP 145/72
--- NOTE | 2024-11-01 17:04 | NUR ---
SHIFT SUMMARY POST OP DAY 2 SMALL BOWEL RESECTION W/ REPAIR OF INCARCERATED HERNIA. PT IS A/OX4. PT IS TOLERATING PO INTAKE BUT REPORTS PAIN WHEN SWALLOWING. DENIES PAIN OTHERWISES. MD IS AWARE. PT STILL EXPERIENCING DYSPNEA, VSS. PT WAS AFEBRILE THE MAJORITY OF THE SHIFT WITH ONE ORAL TEMP OF 99.8 F. PT IS REPORTING WEAKNESS AND FEELING TIRED. PT ABLE TO MAKE NEEDS KNOWN, CALL LIGHT IN REACH. BED IN LOWEST POSITION.
--- NOTE | 2024-11-01 17:52 | NUR ---
RHYTHM CHANGE ELECTRO MECHANICAL TECHNICIAN CALLED THIS RN AT [phone] TO REPORT THE PATIENT WAS AFIB AT 109. DR VINES NOTIFIED, NO NEW ORDERS AT THIS TIME.
[2024-11-01 19:54] VITALS: BP 151/79
[2024-11-02] VITALS (7 sets, daily range): BP systolic 111–144; BP diastolic 45–76
--- NOTE | 2024-11-02 03:28 | NUR ---
NOTIFIED BY LAB THAT ONE OF PT'S BLOOD CULTURES ARE POSITIVE WITH GRAM POSITIVE COCCI IN CLUSTERS. 2ND CULTURE HAS NOT COME BACK YET. NOTIFIED ASSISTANT SALES DIRECTOR HOSPITALIST DR LYONS WHO STATED TO WAIT UNTIL 2ND CULTURE RESULT COMES BACK BEFORE HE PLACES ANY ADDITIONAL ORDERS.
[2024-11-02 04:58] LABS: Hematocrit 30.5 % (37.0-53.0); Hemoglobin 10.3 g/dL (13.5-17.5); Mean Corpuscular HGB Conc 33.8 g/dL (31.5-36.5); Mean Corpuscular Volume 93 fL (80-100); NRBC ABSOLUTE 0.00 K/mm3 (0.00-0.02); NRBC Auto 0.0 /100 WBC (0.0-0.2); Platelet Count 121 K/mm3 (150-400); RDW Coefficient Variation 15.3 % (11.7-14.2); RDW Standard Deviation 52.1 fL (35.1-46.3)
[2024-11-02 05:39] LABS: Anion Gap 10.0 mmol/L (3-11); Blood Urea Nitrogen 45.0 mg/dL (8-24); CO2, Blood 27.0 mmol/L (21-32); Calcium, Blood 7.2 mg/dL (8.5-10.1); Chloride, Blood 101.0 mmol/L (98-108); Creatinine, Blood 1.38 mg/dL (0.60-1.20); Glucose, Blood 119.0 mg/dL (70-99); Potassium, Blood 3.8 mmol/L (3.5-5.5); Sodium, Blood 134.0 mmol/L (136-145)
--- NOTE | 2024-11-02 05:39 | NUR ---
EQUIPMENT OPERATOR/LABORER SUMMARY PT IS POD 3 FOR HERNIA REPAIR AND SMALL BOWEL RESECTION. LAP SITES C/D/I AND NATHANAEL DRESSING WITH NO DRAINAGE NOTED WELL. PT CONVERTED BACK SO SINUS RHYTHM TOWARD THE BEGINNING OF SHIFT PER PATIENT SUPPORT ASSISTANT AND HAS MAINTAINED SR THROUGH THE NIGHT. PAIN CONTROLLED WITH PO PAIN MEDS, SEE MAR. PT WITH A MAX TEMP OF 99.1 TONIGHT. 1 OUT OF 2 BLOOD CULTURES DID COME BACK POSITIVE, 2ND CULTURE RESULTS STILL PENDING. NOTIFIED HOSPITALIST, SEE PREVIOUS NOTE. VSS, NED.
[2024-11-02] MEDS ORDERED: NS 250 ML IV PRN (08:30)
[2024-11-02] MEDS ORDERED: Vancomycin HCL 2,500 MG in NS 500 ML IV ONE (08:45)
[2024-11-02] MEDS ORDERED: Vancomycin (Pharmacy Consult) IV SCH (09:00)
--- NOTE | 2024-11-02 16:43 | NUR ---
SHIFT SUMMARY PT IS POD#3. PAIN MANAGED WITH PO PAIN MEDICATION. PT SAT UP TO THE CHAIR TODAY, OOB AND AMBULATION ENCOURAGED. HE WAS WEANED FROM O2, PT ENCOURAGED TO USE INCENTIVE SPIROMETER. PT'S BIGGEST COMPLAINT WAS PAIN WITH SWALLOWING, HE STATES THAT IT FEELS LIKE FOOD GETS STUCK IN HIS THROAT. PT REQUESTED TO BE PLACED ON A FULL LIQUID DIET. DR. VINES IS AWARE OF PT'S CONCERNS R/T SWALLOWING. PT HAS BEEN PLEASANT T/O THE DAY. HE IS A SBA WHEN OOB AND USES HIS CALL LIGHT APPROPRIATELY.
--- NOTE | 2024-11-02 23:33 | NUR ---
2330- PT REPORTING PAIN WHILE SWALLOWING. PT STATES HE IS AVOIDING FLUIDS BECAUSE OF DISCOMFORT. PROVIDR RUPAL CALLED AND WAS ASKED IF PT WOULD BENEFIT FROM GI COCKTAIL. RUPAL VOICED CONCERNS ABOUT ASPIRATION BUT AGREED TO START IVF'S. PT PO INTAKE IS VERY POOR THI SHIFT. LR @ 75/HR WASORDERED.
[2024-11-03] VITALS (7 sets, daily range): BP systolic 118–143; BP diastolic 55–69
--- NOTE | 2024-11-03 04:14 | NUR ---
NOC SUMMARY- PT PAIN MANAGED WELL. PT COMPLAINS OF DISCOMFORT WHEN SWALLOWING. IVF STARTED DUE TO POOR PO FLUID INTAKE. PT IS ABLE TO TOLERATE ICE CHIPS. PT IS VOIDING WELL. PT DRESSING IS C/D/I AND COMPRESSED. NO TELE EVENTS REPORTED. NO FEVERS THIS SHIFT. PT HAS BEEN RESTING QUIETLY. PT ON CONT BIOX, SPO2 >90% ON RA. CALL LIGHT IN REACH.
--- NOTE | 2024-11-03 18:19 | NUR ---
SHIFT SUMMARY POD3 OPEN HERNIA REPAIR AND BOWEL RESECTION. MIDLINE WITH NATHANAEL IS C/D/I. LAP SITE WITH WOUND GLUE IS C/D/I. PATIENT IS AOX4, 1 ASSIST TO CHAIR, ASSIST WITH URINAL. PATIENT IS HAVING SWALLOWING PROBLEMS, EVAL FROM SPEECH THERAPY DONE. SWALLOW TEST IN AM. ABLE TO TAKE MEDS 1 AT TIME WITH WATER. IV ABX T/O SHIFT. DENIES NEED FOR PAIN MEDICATION. PATIENT IS ON LASIX FOR HF. DENIES N/V. VSS. ABLE TO MAKE NEEDS KNOWN.
[2024-11-04 03:36] VITALS: BP 120/56
--- NOTE | 2024-11-04 05:10 | NUR ---
SHIFT SUMMARY POD 5 HERNIA REPAIR W/ SB RESECTION. A&O X4. MIDLINE WITH NATHANAEL DRESSING AND LAP SITES C/D/I. PT C/O DIFFICULTY SWALLOWING. EVALUATED BY SPEECH THERAPY ON 11/01/24 DIET CHANGED TO THIN LIQUID. PLAN FOR BARIUM SWALLOW STUDY TODAY. PAIN MANAGED PER EMAR. TELE IN PLACE, SR @ 82. CONTINUOUS PULSE OX IN PLACE SPO2 96%. CALL LIGHT WITHIN REACH.
[2024-11-04 07:11] LABS: Anion Gap 7.0 mmol/L (3-11); Blood Urea Nitrogen 37.0 mg/dL (8-24); CO2, Blood 28.0 mmol/L (21-32); Calcium, Blood 8.0 mg/dL (8.5-10.1); Chloride, Blood 104.0 mmol/L (98-108); Creatinine, Blood 1.15 mg/dL (0.60-1.20); Glucose, Blood 120.0 mg/dL (70-99); Potassium, Blood 4.3 mmol/L (3.5-5.5); Sodium, Blood 135.0 mmol/L (136-145)
[2024-11-04 07:18] LABS: BASOPHILS ABSOLUTE AUTO 0.07 K/mm3 (0.00-0.23); BASOPHILS PERCENT AUTO 1 % (0-2); EOSINOPHILS ABSOLUTE AUTO 0.97 K/mm3 (0.00-0.68); EOSINOPHILS PERCENT AUTO 13 % (0-6); Hematocrit 32.3 % (37.0-53.0); Hemoglobin 10.8 g/dL (13.5-17.5); IMMATURE GRAN ABSOLUTE AUTO 0.03 K/mm3 (0.00-0.10); IMMATURE GRAN PERCENT AUTO 0 % (0-1); LYMPHOCYTES ABSOLUTE AUTO 1.67 K/mm3 (0.84-5.20); LYMPHOCYTES PERCENT AUTO 22 % (21-46); MONOCYTES ABSOLUTE AUTO 1.39 K/mm3 (0.16-1.47); MONOCYTES PERCENT AUTO 18 % (4-13); Mean Corpuscular HGB Conc 33.4 g/dL (31.5-36.5); Mean Corpuscular Volume 93 fL (80-100); NEUTROPHILS ABSOLUTE AUTO 3.63 K/mm3 (1.96-9.15); NEUTROPHILS PERCENT AUTO 47 % (41-73); NRBC ABSOLUTE 0.00 K/mm3 (0.00-0.02); NRBC Auto 0.0 /100 WBC (0.0-0.2); Platelet Count 149 K/mm3 (150-400); RDW Coefficient Variation 15.4 % (11.7-14.2); RDW Standard Deviation 52.4 fL (35.1-46.3)
[2024-11-04 07:31] VITALS: BP 140/58
--- NOTE | 2024-11-04 10:09 | NUR ---
HELD VITAMINS D/T PT'S DIFFICULTY SWALLOWING.
--- NOTE | 2024-11-04 11:36 | NUR ---
PT TO IMAGING
--- NOTE | 2024-11-04 12:54 | NUR ---
NOTIFIED DR PANG BARIUM SWALLOW EVAL IS COMPLETE.
[2024-11-04 14:29] VITALS: BP 133/68
[2024-11-04] MEDS ORDERED: Pantoprazole Sodium 40 MG Injection IV SCH (16:30)
--- NOTE | 2024-11-04 17:04 | NUR ---
SUMMARY NO ACUTE CHANGES T/O SHIFT. PT HAD BARIUM SWALLOW EVAL THIS AM. PT MAY HAVE REGULAR DIET. AWAITING ORDERED CT SCAN. PROTONIX ORDERED AND ADMINISTERED PER ORDERS. PT HAS BEEN SITTING UP IN CHAIR MOST OF SHIFT. CALL LIGHT IN REACH.
[2024-11-04 19:09] VITALS: BP 134/72
[2024-11-05 00:30] VITALS: BP 134/73
[2024-11-05 04:39] VITALS: BP 133/65
--- NOTE | 2024-11-05 04:42 | NUR ---
SHIFT SUMMARY POD 6 HERNIA REPAIR W/ SB RESECTION. A&O X4. MIDLINE NATHANAEL DRESSING COMPRESSED AND LAP SITES C/D/I. PAIN MANAGED PER EMAR. PT REPORTS PASSING FLATUS AND BM THIS SHIFT. PT TOLERATING DIET, DENIES N&V. TELE IN PLACE SR @86. CONTINUOUS PULSE OX IN PLACE SPO2 98%. CALL LIGHT WITHIN REACH.
[2024-11-05 07:15] VITALS: BP 124/58
[2024-11-05 15:04] VITALS: BP 137/50
--- NOTE | 2024-11-05 15:13 | NUR ---
Pt. is awake and sitting in a recliner when he welcomed my visit. Pt. is pleasant. Pt. verbalized an expecation that he would be discharged tomorrow. Facilitated a life review. Pt. verbalized that he is staying with his daughter, but htat his home is in the [place] area. Listen with interest and empathy. 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 Considered matetrs of jennifer and belief. Pt. displayed evidence of engagement and trust. Prayed for the Pt. Pt. verbalzied gratitude for the spiritual care visit.
[2024-11-05 18:55] VITALS: BP 154/86
[2024-11-05 22:46] VITALS: BP 122/63
[2024-11-06 04:10] VITALS: BP 124/63
--- NOTE | 2024-11-06 04:49 | NUR ---
NOC SUMMARY- PT PAIN MANAGED WELL. PT HAD DIFFICULTY SLEEPING DESPITE TRAZEDONE. PT IS VOIDING WELL. PT CONTINUES TO HAVE DYPHAGIA. PT HAS BEEN NPO SINCE [place]. PT DRESSING C/D/I. CALL LIGHT IN REACH.
[2024-11-06 14:34] VITALS: BP 119/56
[2024-11-06] MEDS ORDERED: Ondansetron HCl 2 MG / ML 2ML Vial ONE (14:49)
[2024-11-06] MEDS ORDERED: Metoclopramide HCl 5MG / ML 2ML Vial ONE (14:49)
[2024-11-06] MEDS ORDERED: Dexamethasone Sod Phos 10 MG/ML 1ML VIAL ONE (14:49)
[2024-11-06 15:22] VITALS: BP 112/53
--- NOTE | 2024-11-06 15:26 | NUR ---
11/06/24 1526 Zoila Youngblood [id number] History, Chart, Medications and Allergies reviewed before start of procedure.ARVIN PROVIDING ANESTHESIA
--- NOTE | 2024-11-06 15:26 | NUR ---
PT BACK TO UNIT FROM UPPER ENDOSCOPY - AXO4. VSS. STOOD FROM GURNEY TO BED AND IS LAYING BACK IN BED NOW. PT WENT TO DAY SURGERY AROUND 1405.
--- NOTE | 2024-11-06 15:37 | NUR ---
SUMMARY ASSUMED CARE OF PT @0700. VSS. AXO4. NPO FOR SCOPE UNTIL BEING TAKEN BACK BY DAY SURGERY RN. PT UP TO [facility] AND BACK A FEW TIMES, WORKED WITH PHYSICAL THERAPY WELL. MIDLINE INCISION WITH POCO DRESING CDI. LAP SITES X2 CDI. PT HAS BEEN RESTING OFF AND ON - MEDICATED FOR PAIN AND NAUSEA. PT ARRIVED BACK FROM EGD W/ LITTLE COMPLAINT - AWAITING FOLLOWUP FROM DR CHRISTIE. WILL BE RELINQUISHING CARE TO ANOTHER RN.
[2024-11-06 16:02] VITALS: BP 123/55
[2024-11-06] MEDS ORDERED: Sucralfate 1000MG / 10ML UD BTL PO SCH (16:30)
[2024-11-06] MEDS ORDERED: Pantoprazole Sodium 40 MG Injection IV SCH (16:30)
--- NOTE | 2024-11-06 18:35 | NUR ---
SINCE ASSUMING CARE: PT HAS RESTED ON & OFF. PROVIDED w/ SOFT FOOD SNACKS & DINNER. TOLERATING WELL. TOOK CARAFATE & PROTONIX PRIOR TO DINNER.
[2024-11-06 19:17] VITALS: BP 138/69
[2024-11-07 03:58] VITALS: BP 135/66
--- NOTE | 2024-11-07 05:08 | NUR ---
VISION MIXER SUMMARY NO ACUTE CHANGES THIS SHIFT. PT AAOX4 AND CALLS APPROPRIATELY. NATHANAEL DRESSING TO MIDLINE ABD C/D/I. PT UP AT BEDSIDE SEVERAL TIMES TONIGHT TO USE URINAL AND HAS DONE WELL BEING INDEPENDENT WITH THAT ASIDE FROM A STANDBY. PT HAS BEEN EATING ICE CHIPS AND POPSCICLES THROUGHOUT THE NIGHT TO HELP WITH THROAT PAIN. MEDICATED ONCE FOR PAIN THIS MORNING. VSS, WCTM.
[2024-11-07 07:15] VITALS: BP 139/67
--- NOTE | 2024-11-07 07:43 | NUR ---
Up to bathroom using walker, voided. Alert, oriented and no c/o pain this morning. Given carafate at this time. Sitting up in recliner.
[2024-11-07] MEDS ORDERED: Carafate1 GM/10 ML PO (09:30)
[2024-11-07] MEDS ORDERED: PANT40 PO (09:31)
== END 2024-11-07 13:31 | disposition home health service (06) | DRG 330 ==
LOC: ER 19:38 → SURS 23:32
PROVIDERS: Internal Medicine; Student in an Organized Health Care Education/Training Program; Surgery; ADMIT Internal Medicine
PROC: 0WQF0ZZ Repair Abdominal Wall, Open Approach (ICD-10-PCS; 2024-10-30)
PROC: 0D9670Z Drainage of Stomach with Drainage Device, Via Natural or Artificial Opening (ICD-10-PCS; 2024-10-30)
PROC: 0WJF4ZZ Inspection of Abdominal Wall, Percutaneous Endoscopic Approach (ICD-10-PCS; 2024-10-30)
PROC: 3E03329 Introduction of Other Anti-infective into Peripheral Vein, Percutaneous Approach (ICD-10-PCS; 2024-10-30)
PROC: 0DB80ZZ Excision of Small Intestine, Open Approach (ICD-10-PCS; principal; 2024-10-30 08:30)
DX: K43.6 Other and unspecified ventral hernia with obstruction, without gangrene (principal); I13.0 Hypertensive heart and chronic kidney disease with heart failure and stage 1 through stage 4 chronic kidney disease, or unspecified chronic kidney disease; I50.32 Chronic diastolic (congestive) heart failure; N17.9 Acute kidney failure, unspecified; T81.44XA Sepsis following a procedure, initial encounter; E78.5 Hyperlipidemia, unspecified; E11.22 Type 2 diabetes mellitus with diabetic chronic kidney disease; I87.2 Venous insufficiency (chronic) (peripheral); N20.0 Calculus of kidney; E66.01 Morbid (severe) obesity due to excess calories; I27.20 Pulmonary hypertension, unspecified; N18.32 Chronic kidney disease, stage 3b; R13.19 Other dysphagia; I48.0 Paroxysmal atrial fibrillation; J44.9 Chronic obstructive pulmonary disease, unspecified; Z90.49 Acquired absence of other specified parts of digestive tract; Z79.52 Long term (current) use of systemic steroids; Z79.84 Long term (current) use of oral hypoglycemic drugs; Z79.82 Long term (current) use of aspirin; Z79.899 Other long term (current) drug therapy; Z88.5 Allergy status to narcotic agent
CPT/HCPCS: 36415; 71045; 71046; 74177; 74230; 80048; 80053; 82947; 83605; 83690; 83735; 84100; 84145; 84484; 85025; 85027; 87040; 88307; 92610; 92611; 93005; 93010; 94640; 94664; 94760; 94762; 97110; 97140; 97161; 97530; 99285-25; A9270; J0330; J0690; J1100; J1171; J1650; J2371; J2405; J2470; J2704; J2765; J3010; J3373; J7030; J7040; J7050; J7120; Q9967

== ENCOUNTER 2025-01-03 04:07 | Inpatient (IN) | payer MEDICARE ==
[2025-01-03] VITALS (17 sets, daily range): BP systolic 99–148; BP diastolic 54–86
[~2025-01-03] VITALS: Ht 182.9 cm; Wt 154.2 kg
[~2025-01-03 04:07] MED LIST changes: +Carafate1 GM/10 ML PO; +PANT40 PO
[2025-01-03] MEDS ORDERED: Ondansetron HCl 2 MG / ML 2ML Vial IV ONE (04:35)
[2025-01-03] MEDS ORDERED: Morphine Sulfate 4 MG/1 ML Injection IV ONE ×2 (04:35→06:30)
[2025-01-03 05:05] LABS: BASOPHILS ABSOLUTE AUTO 0.10 K/mm3 (0.00-0.23); BASOPHILS PERCENT AUTO 1 % (0-2); EOSINOPHILS ABSOLUTE AUTO 0.55 K/mm3 (0.00-0.68); EOSINOPHILS PERCENT AUTO 7 % (0-6); Hematocrit 36.3 % (37.0-53.0); Hemoglobin 11.5 g/dL (13.5-17.5); IMMATURE GRAN ABSOLUTE AUTO 0.02 K/mm3 (0.00-0.10); IMMATURE GRAN PERCENT AUTO 0 % (0-1); LYMPHOCYTES ABSOLUTE AUTO 1.85 K/mm3 (0.84-5.20); LYMPHOCYTES PERCENT AUTO 25 % (21-46); MONOCYTES ABSOLUTE AUTO 0.86 K/mm3 (0.16-1.47); MONOCYTES PERCENT AUTO 11 % (4-13); Mean Corpuscular HGB Conc 31.7 g/dL (31.5-36.5); Mean Corpuscular Volume 89 fL (80-100); NEUTROPHILS ABSOLUTE AUTO 4.18 K/mm3 (1.96-9.15); NEUTROPHILS PERCENT AUTO 55 % (41-73); NRBC ABSOLUTE 0.00 K/mm3 (0.00-0.02); NRBC Auto 0.0 /100 WBC (0.0-0.2); Platelet Count 170 K/mm3 (150-400); RDW Coefficient Variation 14.5 % (11.7-14.2); RDW Standard Deviation 47.8 fL (35.1-46.3)
[2025-01-03 05:20] LABS: Prothrombin Time Results 12.1 Sec (9.7-11.5)
[2025-01-03 05:26] LABS: Alanine Aminotransfer (ALT/SGP 21.0 U/L (12-78); Albumin, Blood 2.7 g/dL (3.4-5.0); Albumin/Globulin Ratio 0.6 (0.8-1.8); Anion Gap 12.0 mmol/L (3-11); Aspartate Aminotrans (AST/SGOT 34.0 U/L (12-37); Bilirubin, Total 0.8 mg/dL (0.1-1.0); Blood Urea Nitrogen 24.0 mg/dL (8-24); CO2, Blood 23.0 mmol/L (21-32); Calcium, Blood 8.8 mg/dL (8.5-10.1); Chloride, Blood 106.0 mmol/L (98-108); Creatinine, Blood 1.15 mg/dL (0.60-1.20); Globulin, Blood 4.6 g/dL (2.2-4.0); Glucose, Blood 163.0 mg/dL (70-99); Potassium, Blood 3.7 mmol/L (3.5-5.5); Sodium, Blood 137.0 mmol/L (136-145); Total Protein, Blood 7.3 g/dL (6.4-8.2)
[2025-01-03] MEDS ORDERED: NS 500 ML IV SCH (06:30)
[2025-01-03 06:37] LABS: Source, Urine Voided
[2025-01-03 06:39] LABS: Bilirubin, Urine Neg (Neg); Color, Urine Yellow (P-Yellow); Glucose Qualitative, Urine 4+ (Neg); Ketones, Urine Neg (Neg); Leukocyte Esterase, Urine Neg (Neg); Protein, Urine Neg (Neg); Specific Gravity, Urine 1.015 (1.003-1.022); Urobilinogen, Urine NORM (Normal)
[2025-01-03 06:48] LABS: White Blood Cells, Urine 0-2 /hpf (0-5)
[2025-01-03] MEDS ORDERED: Prochlorperazine Edisylate 10 mg Vial IV ONE (06:55)
[2025-01-03] MEDS ORDERED: HYDROmorphone HCl/Pf 1MG SYR IV ONE (06:55)
[2025-01-03] MEDS ORDERED: FLU VACC TS2025(65UP)/MF59C/PF 45 MCG/0.5 ML SYRINGE IM SCH (08:10)
[2025-01-03] MEDS ORDERED: Ondansetron HCl 2 MG / ML 2ML Vial IV PRN ×2 (08:10→09:35)
[2025-01-03] MEDS ORDERED: FentaNYL Citrate 50 MCG/ML 2 ML Injection IV PRN ×4 (08:10→23:35)
[2025-01-03] MEDS ORDERED: NS 1,000 ML IV SCH (09:00)
[2025-01-03] MEDS ORDERED: FentaNYL Citrate 50 MCG/ML 2 ML Injection ONE ×2 (09:35→09:36)
[2025-01-03] MEDS ORDERED: Albuterol 2.5 MG/3 ML VIAL INH PRN (09:35)
[2025-01-03] MEDS ORDERED: HYDROmorphone HCl/Pf 1MG SYR IV PRN (09:40)
[2025-01-03] MEDS ORDERED: MetroNIDAZOLE 500MG/NS 100 ml 100 ML IV SCH (09:47)
[2025-01-03] MEDS ORDERED: CefTRIAXone Sodium 2,000 MG in NS 100 ML IV SCH (10:00)
[2025-01-03] MEDS ORDERED: Bupivacaine 0.5% HCl 5 MG/ML 30MLVIAL ONE (10:03)
--- NOTE | 2025-01-03 10:13 | NUR ---
PT TRANSPORTED TO [facility]. AGREES WITH PLANNED SURGERY. DR. KING IN TO SEE PT AND CONSET OBTAINED. LUNG SOUNDS CLEAR. History, Chart, Medications and Allergies reviewed before start of procedure. WOUNDS NOTED ON LOWER EXTREMITIES, COVERED WITH BANDAGE. SMALL SORE ON UPPER BACK NOTED.
[2025-01-03] MEDS ORDERED: Sugammadex Sodium 200 MG/2ML SDV (100 MG/ML) ONE (10:28)
[2025-01-03] MEDS ORDERED: Rocuronium Bromide 10 MG/ML 5ML Injection IV ONE (10:29)
[2025-01-03] MEDS ORDERED: Phenylephrine HCl 100 MCG/ML-NS 10MLSYR (1MG/10ML) ONE ×2 (10:29→11:20)
[2025-01-03] MEDS ORDERED: Ondansetron HCl 2 MG / ML 2ML Vial ONE ×2 (10:30→11:08)
[2025-01-03] MEDS ORDERED: Dexamethasone Sod Phos 10 MG/ML 1ML VIAL ONE (10:30)
[2025-01-03] MEDS ORDERED: SuccINYLCHOLINE Chloride 100 MG/5 ML 5MLSYR ONE (10:30)
[2025-01-04 04:12] VITALS: BP 148/75
[2025-01-04 05:38] LABS: Hematocrit 33.0 % (37.0-53.0); Hemoglobin 10.7 g/dL (13.5-17.5); Mean Corpuscular HGB Conc 32.4 g/dL (31.5-36.5); Mean Corpuscular Volume 90 fL (80-100); NRBC ABSOLUTE 0.00 K/mm3 (0.00-0.02); NRBC Auto 0.0 /100 WBC (0.0-0.2); Platelet Count 161 K/mm3 (150-400); RDW Coefficient Variation 14.3 % (11.7-14.2); RDW Standard Deviation 46.7 fL (35.1-46.3)
--- NOTE | 2025-01-04 06:03 | NUR ---
SHIFT SUMMARY A/OX4, 1P ASSIST WITH FWW TO BATHROOM. RAMIREZ D/C'D THIS SHIFT. VOIDING IN URINAL. WOUND VAC TO MIDLINE ABD C/D/I. C/O ABD PAIN, MEDICATED PER EMAR. NO ACUTE CHANGES AT THIS TIME.
[2025-01-04 06:10] LABS: Anion Gap 12.0 mmol/L (3-11); Blood Urea Nitrogen 28.0 mg/dL (8-24); CO2, Blood 21.0 mmol/L (21-32); Calcium, Blood 8.1 mg/dL (8.5-10.1); Chloride, Blood 105.0 mmol/L (98-108); Creatinine, Blood 1.17 mg/dL (0.60-1.20); Glucose, Blood 215.0 mg/dL (70-99); Potassium, Blood 4.1 mmol/L (3.5-5.5); Sodium, Blood 134.0 mmol/L (136-145)
[2025-01-04 07:18] VITALS: BP 124/77
[2025-01-04] MEDS ORDERED: HYDROcodone 5-APAP 325 TAB PO PRN (12:50)
[2025-01-04 13:12] VITALS: BP 127/69
[2025-01-04] MEDS ORDERED: Albuterol HFA200 ACT/6.7 GM INH INH PRN (13:15)
[2025-01-04 14:01] VITALS: BP 147/78
--- NOTE | 2025-01-04 17:26 | NUR ---
SHIFT SUMMARY WOUND VAC MAINTAINING SEAL. PT UP TO AMBULATE MULTIPLE LOOPS OF FLOOR MULTIPLE TIMES TODAY. IV TO SL. PT TAKING NORCO FOR PAIN. WILL CONTINUE TO MONITOR.
[2025-01-04 19:44] VITALS: BP 151/72
[2025-01-04 23:26] VITALS: BP 144/72
--- NOTE | 2025-01-05 02:35 | NUR ---
PT WITH INTERMITTENT WHEEZING AND REPORTS SHORTNESS OF BREATH WITH COUGHING. CALL TO RT; RT TO ASSESS PT.
--- NOTE | 2025-01-05 04:39 | NUR ---
SHIFT SUMMARY NO ACUTE EVENTS OVERNIGHT. PT WITH ONE EPISODE OF COUGHING/WHEEZING (SEE PREVIOUS NOTE). PT SBA/1X ASSIST WITH URINAL AT BEDSIDE. PT WITH MIDLINE WOUND VAC TO ABDOMEN.
[2025-01-05 07:25] VITALS: BP 149/77
[2025-01-05 08:32] LABS: Anion Gap 11.0 mmol/L (3-11); Blood Urea Nitrogen 31.0 mg/dL (8-24); CO2, Blood 22.0 mmol/L (21-32); Calcium, Blood 8.1 mg/dL (8.5-10.1); Chloride, Blood 107.0 mmol/L (98-108); Creatinine, Blood 1.13 mg/dL (0.60-1.20); Glucose, Blood 145.0 mg/dL (70-99); Potassium, Blood 3.8 mmol/L (3.5-5.5); Sodium, Blood 136.0 mmol/L (136-145)
[2025-01-05] MEDS ORDERED: Cholecalciferol 1000 Unit Tablet (=25MCG) PO SCH (09:00)
--- NOTE | 2025-01-05 11:48 | NUR ---
DR KING IN TO SEE PT.
[2025-01-05 14:09] VITALS: BP 128/65
--- NOTE | 2025-01-05 16:22 | NUR ---
SUMMARY NO ACUTE CHANGES T/O SHIFT. PT AMBULATED IN [place] W/GLOBAL REGULATORY AFFAIRS MANAGER. NEW IV PLACED THIS AFTERNOON. IV ABX INFUSING PER ORDERS. PT MEDICATED DURING DAY PER ORDERS W/PO DILAUDID PRN PAIN. TOLERATING DIET. VOIDING W/1 PERSON ASSIST AND FEMALE URINAL. CALL LIGHT IN REACH.
[2025-01-05 20:08] VITALS: BP 158/93
[2025-01-06 00:16] VITALS: BP 163/79
[2025-01-06 04:13] VITALS: BP 137/80
--- NOTE | 2025-01-06 06:35 | NUR ---
SHIFT SUMMARY NO ACUTE OVERNIGHT. POD 3 INCARCERATED VENTRAL HERNIA. A&O X4. MIDLINE DRESSING COMPRESSED C/D/I. WOUND VAC SUCTION @ 125 MM/HG. PAIN MANAGED WELL PER EMAR. 1 PERSON ASSIST TO BATHROOM W/ FWW AND GB. SR @88 W/ FIRST DEGREE HB PER DIESEL SERVICE APPRENTICE. PT RESTING IN BED, RESPIRATIONS EVEN AND UNLABORED. CALL LIGHT WITHIN REACH.
[2025-01-06 07:09] VITALS: BP 150/78
[2025-01-06] MEDS ORDERED: DiphenhydrAMINE HCL/Zinc Acet Cream TOP PRN (11:40)
[2025-01-06 15:52] VITALS: BP 141/73
--- NOTE | 2025-01-06 17:38 | NUR ---
PATIENT WORKED WITH PT AND OT AND SAT UP IN CHAIR MOST OF THE DAY. PAIN MANAGED WITH PRN. LEG WOUNDS CLEANED AND COVERED AND COMPRESSION WRAPS PLACED ON LOWER LEGS.
[2025-01-06 18:04] VITALS: BP 142/61
[2025-01-06 19:24] VITALS: BP 128/62
[2025-01-07 04:15] VITALS: BP 122/60
[2025-01-07 05:36] LABS: BASOPHILS ABSOLUTE AUTO 0.07 K/mm3 (0.00-0.23); BASOPHILS PERCENT AUTO 1 % (0-2); EOSINOPHILS ABSOLUTE AUTO 0.89 K/mm3 (0.00-0.68); EOSINOPHILS PERCENT AUTO 11 % (0-6); Hematocrit 31.8 % (37.0-53.0); Hemoglobin 10.3 g/dL (13.5-17.5); IMMATURE GRAN ABSOLUTE AUTO 0.02 K/mm3 (0.00-0.10); IMMATURE GRAN PERCENT AUTO 0 % (0-1); LYMPHOCYTES ABSOLUTE AUTO 2.10 K/mm3 (0.84-5.20); LYMPHOCYTES PERCENT AUTO 26 % (21-46); MONOCYTES ABSOLUTE AUTO 1.07 K/mm3 (0.16-1.47); MONOCYTES PERCENT AUTO 13 % (4-13); Mean Corpuscular HGB Conc 32.4 g/dL (31.5-36.5); Mean Corpuscular Volume 89 fL (80-100); NEUTROPHILS ABSOLUTE AUTO 3.86 K/mm3 (1.96-9.15); NEUTROPHILS PERCENT AUTO 48 % (41-73); NRBC ABSOLUTE 0.00 K/mm3 (0.00-0.02); NRBC Auto 0.0 /100 WBC (0.0-0.2); Platelet Count 168 K/mm3 (150-400); RDW Coefficient Variation 14.6 % (11.7-14.2); RDW Standard Deviation 47.5 fL (35.1-46.3)
--- NOTE | 2025-01-07 05:48 | NUR ---
SHIFT SUMMARY NO ACUTE EVENTS OVERNIGHT. PT USES URINAL AT BEDSIDE WITH ASSISTANCE FROM STAFF. WOUND VAC IN PLACE TO MIDLINE INCISION WITH SUCTION AT 125MM HG. PT AMBULATES WITH FWW. PT HAS MULTIPLE OPEN SORES SCATTERED THAT INTERMITTENTLY BLEED.
[2025-01-07 06:12] LABS: Anion Gap 9.0 mmol/L (3-11); Blood Urea Nitrogen 29.0 mg/dL (8-24); CO2, Blood 24.0 mmol/L (21-32); Calcium, Blood 8.0 mg/dL (8.5-10.1); Chloride, Blood 106.0 mmol/L (98-108); Creatinine, Blood 1.11 mg/dL (0.60-1.20); Glucose, Blood 150.0 mg/dL (70-99); Potassium, Blood 3.7 mmol/L (3.5-5.5); Sodium, Blood 135.0 mmol/L (136-145)
[2025-01-07 07:54] VITALS: BP 159/78
--- NOTE | 2025-01-07 14:38 | NUR ---
DR KING IN TO SEE PT STATED OKAY TO DC FROM HIS STANDPOINT. IF DC'D REMOVE WOUND VAC AND PLACE MEDIPORE DRESSING.
[2025-01-07 15:20] VITALS: BP 143/74
--- NOTE | 2025-01-07 16:27 | NUR ---
SUMMARY NO ACUTE CHANGES T/O SHIFT. WOUND VAC TO ABD COMPRESSED AND CDI. SHERRI WRAPS TO BLE CDI. PT HD SMALL AMOUNT BLEEDING BETWEEN SCROTUM AND R LEG PER HEAD PORTER BAGGAGE ABD PATIENT THIS AM. UNABLE TO VISUALIZE AREA, BLEEDING SEEMS RESOLVED. PT SAT UP IN RECLINER MOST OF SHIFT AND WORKED WITH THERAPY DURING DAY. VOIDS FREQUENTLY, REQUIRES ASSISTANCE WITH URINAL D/T HABITUS. PLEASANT AND COOPERATIVE. CALL LIGHT IN REACH.
[2025-01-07 19:15] VITALS: BP 127/68
[2025-01-08 03:47] VITALS: BP 141/68
--- NOTE | 2025-01-08 04:42 | NUR ---
UPDATE RT IN ROOM AT THIS TIME R/T PT REQUESTING PRN BREATHING TX; C/O WHEEZING. RN IN ROOM MEDICATED FOR PAIN PER ORDERS. PT HAS CALL LIGHT IN REACH.
[2025-01-08 07:19] VITALS: BP 149/65
--- NOTE | 2025-01-08 09:35 | NUR ---
WORKING WITH THERAPY
--- NOTE | 2025-01-08 10:33 | NUR ---
DR KING IN TO SEE PT.
[2025-01-08] MEDS ORDERED: HYDMOR2 PO (11:31)
--- NOTE | 2025-01-08 11:50 | NUR ---
dishcarging REVIEWED DC INSTRUCTIONS W/PT; VERBALIZED UNDERSTANDING. SIGNED DC PAPERWORK. PT PROVIDED DC FOLDER. EATING LUNCH WHILE AWAITING RIDE. CALL LIGHT IN REACH.
[2025-01-08 12:01] VITALS: BP 157/80
--- NOTE | 2025-01-08 12:32 | NUR ---
DISCHARGED LEFT UNIT IN WC W/POSSESSIONS AND DC PAPERWORK IN HAND TO MEET RIDE OUTSIDE.
== END 2025-01-08 12:29 | disposition home health service (06) | DRG 354 ==
LOC: ER 04:07 → SURS 08:06
PROVIDERS: Emergency Medicine; Internal Medicine; Surgery; ADMIT Internal Medicine
PROC: 3E03329 Introduction of Other Anti-infective into Peripheral Vein, Percutaneous Approach (ICD-10-PCS; 2025-01-03)
PROC: 0WUF0JZ Supplement Abdominal Wall with Synthetic Substitute, Open Approach (ICD-10-PCS; principal; 2025-01-03 10:30)
DX: K43.6 Other and unspecified ventral hernia with obstruction, without gangrene (principal); E87.21 Acute metabolic acidosis; I13.0 Hypertensive heart and chronic kidney disease with heart failure and stage 1 through stage 4 chronic kidney disease, or unspecified chronic kidney disease; I50.32 Chronic diastolic (congestive) heart failure; Z68.42 Body mass index [BMI] 45.0-49.9, adult; E78.5 Hyperlipidemia, unspecified; E11.22 Type 2 diabetes mellitus with diabetic chronic kidney disease; K21.9 Gastro-esophageal reflux disease without esophagitis; N18.31 Chronic kidney disease, stage 3a; E66.01 Morbid (severe) obesity due to excess calories; I27.20 Pulmonary hypertension, unspecified; I87.2 Venous insufficiency (chronic) (peripheral); L29.9 Pruritus, unspecified; Z90.49 Acquired absence of other specified parts of digestive tract; Z98.890 Other specified postprocedural states; Z79.82 Long term (current) use of aspirin; Z79.84 Long term (current) use of oral hypoglycemic drugs; Z79.899 Other long term (current) drug therapy; Z88.5 Allergy status to narcotic agent
CPT/HCPCS: 36415; 74177; 80048; 80053; 81001; 82947; 83605; 83690; 84484; 85025; 85027; 85610; 93005; 93010; 94640; 94664; 94760; 96374-59; 96375; 96376; 97110; 97116; 97161; 97165; 97530; 97535; 99285-25; A9270; C1781; J0330; J0696; J0780; J1100; J1171; J2270; J2371; J2405; J2704; J3010; J7030; J7120; Q9967